=== PATIENT | male | born 1995 | race Caucasian/White ===

== ENCOUNTER 2017-06-22 06:36 | Day surgery (SDC) | payer OTHER ==
[~2017-06-22] VITALS: Ht 175.3 cm; Wt 65.8 kg
[~2017-06-22 06:36] MED LIST: FLUT1SPR2; LORA10CA PO
[2017-06-22] MEDS ORDERED: LR 1,000 ML IV ONE (06:45)
[2017-06-22] MEDS ORDERED: LIDOCAINE 1% MDV 20ML VIAL As Ordered ONE (07:21)
[2017-06-22] MEDS ORDERED: BUPIVACAINE HCL 0.25% 10 ML VIAL As Ordered ONE (07:21)
[2017-06-22] MEDS ORDERED: LIDOCAINE 2% INJ 100 MG/5 ML SDV (FOR ANES.) As Ordered ONE (07:46)
[2017-06-22] MEDS ORDERED: MIDAZOLAM INJ 2 MG/2 ML VIAL (J2250) As Ordered ONE (07:46)
[2017-06-22] MEDS ORDERED: fentaNYL 100 MCG/2 ML INJECTION (J3010) As Ordered ONE (07:46)
[2017-06-22] MEDS ORDERED: HYDROmorphone HCL 2 MG/ML 1ML VIAL (J1170) As Ordered ONE (07:46)
[2017-06-22] MEDS ORDERED: dexameTHASONE 4 MG/ML 1ML VIAL (J1100) As Ordered ONE (07:46)
[2017-06-22] MEDS ORDERED: PROPOFOL 500 MG/50 ML VIAL As Ordered ONE (07:46)
[2017-06-22] MEDS ORDERED: ONDANSETRON 4MG/2ML VIAL (J2405) As Ordered ONE (07:47)
[2017-06-22] MEDS ORDERED: ROCURONIUM BROMIDE 50 MG/5 ML VIAL/SYRINGE As Ordered ONE (07:47)
[2017-06-22] MEDS ORDERED: CIPRODEX OTIC SUSP 7.5ML As Ordered ONE (07:47)
[2017-06-22] MEDS ORDERED: GLYCOPYRROLATE INJ 0.2 MG/ML 2 ML VIAL As Ordered ONE (07:47)
[2017-06-22] MEDS ORDERED: NEOSTIGMINE 10 MG/10 ML VIAL (J2710) As Ordered ONE (07:47)
[2017-06-22] MEDS ORDERED: METOCLOPRAMIDE INJ 10MG/2ML VIAL (J2765) IV PRN (08:45)
[2017-06-22] MEDS ORDERED: MEPERIDINE INJ 25 MG/ML VIAL (J2175) IV PRN (08:45)
[2017-06-22] MEDS ORDERED: fentaNYL 100 MCG/2 ML INJECTION (J3010) IV PRN (08:45)
[2017-06-22] MEDS ORDERED: ONDANSETRON 4MG/2ML VIAL (J2405) IV PRN (08:45)
[2017-06-22] MEDS ORDERED: PERCOCET 5MG/325MG TAB PO PRN (08:45)
[2017-06-22] MEDS ORDERED: LR 1,000 ML IV SCH (08:45)
--- NOTE | 2017-06-22 08:52 | ROOPDOC ---
[facility] Report Of Operation Report of Operation DATE OF PROCEDURE: 06/22/17 PREPROCEDURE DIAGNOSES: [Chronic tonsillitis and recurrent tonsils after previous tonsillectomy and eustachian tube dysfunction with chronic serous otitis media and negative pressure.]. POSTPROCEDURE DIAGNOSES: [Same]. PROCEDURE: [Coblation tonsillectomy and bilateral myringotomy and tubes under binocular microscopy.]. SURGEON: [Jakob Watt MD [employer] INS[employer]ANCE AGENT: [None], MD ANESTHESIA: [Gen. via endotracheal tube.]. ESTIMATED BLOOD LOSS: Approximately [1] mL. COMPLICATIONS: [None]. REMARKS: [Recurrent tonsil tissue, both left and right side removed. Fairly prominent lingual tonsils partially shaved. 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 PROCEDURE NOTE: [After the patient had been intubated, attention was drawn to the left ear and an ear speculum was placed. Wax was removed with a curet. Tympanosclerosis was present. An incision was made through her to the tympanosclerosis and serous fluid was removed. A Pepperella #1 ventilation tube was placed without difficulty and Ciprodex drops were placed. In a similar fashion, the right side tube was placed and similar findings. After the tube were placed. The table was turned 90 the patient was placed in Trendelenburg. The physician put on new gloves and then a gown for the tonsillectomy. Kobe mouth retractor with a grooved tongue blade was utilized and then retraction was placed into appropriate position. A red rubber King was placed to the left nasal cavity, brought out through the oral cavity for soft palate retraction. There was actually more recurrent tonsillar tissue growing into the tonsillar fossa on the left side than clinically appreciated in the office. This was grasped with a curved Allis clamp and medialized. The Coblator E [id number]] wand was used with settings at 7 and Coblator and 3 cautery. The recurrent palatine tonsillar tissue was dissected without difficulty. This went down into contiguous the with the lingual tonsils which was partially shaved with the Coblator. In a similar fashion, the right side revealed recurrent tonsillar tissue, but was not quite as endophytic as the left. This was medialized with a curved Allis clamp and dissected out with the Coblator as well. Attention then was drawn to partial shave of the lingual tonsils with the Coblator. Minimal bleeding occurred. 1 mL of a solution of 1% lidocaine, 0.25% bupivacaine was injected into the site for postop analgesia. Minimal bleeding occurred and was less than a cc in total throughout the procedure. The tonsillar fossas were roughened with the tonsillar sponge in an effort to start any bleeding, which could not be induced. Retractors were released and then reinspected and oropharynx was placed under saline for further evaluation and no bleeding occurred. At this point, the operation was concluded, the retractors were removed and the patient was turned back over to the pipe insulator helper. Patient tolerated procedure well. DESCRIPTION OF PROCEDURE: [Tonsillectomy and bilateral myringotomy and tubes.]. JAKOB SQUIRES MD Jun 22, 2017 08:49
[2017-06-22] MEDS ORDERED: ACETAMINOPHEN/CODEINE 12.5 ML UDC PO PRN (09:00)
[2017-06-22 10:09] VITALS: BP 126/58
== END 2017-06-22 10:17 | disposition home or self-care (01) ==
LOC: M SDC 06:36
PROVIDERS: ATTEND Otolaryngology
DX: J35.01 Chronic tonsillitis (principal); H65.23 Chronic serous otitis media, bilateral; H68.003 Unspecified Eustachian salpingitis, bilateral; J34.2 Deviated nasal septum; J30.9 Allergic rhinitis, unspecified; J34.3 Hypertrophy of nasal turbinates
CPT/HCPCS: 42826; 69436; 88302; 92504; J1170; J2250; J2405; J2710; J3010

== ENCOUNTER 2018-02-03 12:04 | Emergency (ER) | payer OTHER ==
[2018-02-03] MEDS: IBUPROFEN 600 MG TAB PO (13:57)
== END 2018-02-03 14:15 | disposition home or self-care (01) ==
LOC: M ED 12:04
DX: S62.607A Fracture of unspecified phalanx of left little finger, initial encounter for closed fracture (principal); W22.8XXA Striking against or struck by other objects, initial encounter; Y92.018 Other place in single-family (private) house as the place of occurrence of the external cause
CPT/HCPCS: 73110

== ENCOUNTER 2018-02-05 13:17 | Emergency (ER) | payer OTHER | END 2018-02-05 17:52 | disposition home or self-care (01) | LOC: M ED 13:17 | DX: S62.347D Nondisplaced fracture of base of fifth metacarpal bone, left hand, subsequent encounter for fracture with routine healing (principal); X58.XXXD Exposure to other specified factors, subsequent encounter; Y92.009 Unspecified place in unspecified non-institutional (private) residence as the place of occurrence of the external cause; Z79.899 Other long term (current) drug therapy | CPT/HCPCS: 29125 ==

== ENCOUNTER 2018-08-13 00:25 | Emergency (ER) | payer OTHER | END 2018-08-13 02:01 | disposition home or self-care (01) | LOC: M ED 00:25 | DX: F41.9 Anxiety disorder, unspecified (principal); Z79.899 Other long term (current) drug therapy | CPT/HCPCS: 99284 ==

== ENCOUNTER 2019-07-25 18:31 | Emergency (ER) | payer OTHER ==
[~2019-07-25] VITALS: Ht 172.7 cm; Wt 75.0 kg
[~2019-07-25 18:31] MED LIST changes: +BACT800T5 PO; +ESCI10TA2 PO
[2019-07-25 18:32] VITALS: BP 132/85
== END 2019-07-25 19:47 | disposition home or self-care (01) ==
LOC: M ED 18:31
DX: S61.211D Laceration without foreign body of left index finger without damage to nail, subsequent encounter (principal); S61.217D Laceration without foreign body of left little finger without damage to nail, subsequent encounter; W22.8XXD Striking against or struck by other objects, subsequent encounter; Y92.89 Other specified places as the place of occurrence of the external cause; F33.9 Major depressive disorder, recurrent, unspecified; Z88.0 Allergy status to penicillin